=== PATIENT | male | born 1985 | race African-American/Black ===

== ENCOUNTER 2020-09-27 08:02 | Outpatient (CLI) | payer OTHER ==
--- NOTE | 2020-09-27 08:55 | SLEEP CARE CONSULTATION ---
Information from patient questionnaire entered by Jamaica Arias. I have reviewed and concur with the information entered by Jamaica Arias. This document represents the service I personally performed and the decisions made by me, Adriana Rivera ARNP. History of Present Illness Service Date and Time: 09/27/2020 0802 Reason for Visit: New patient Chief Complaint: reports: Unrefreshed sleep, Snoring, Excessive daytime sleepiness, Observed pauses in breathing, Frequent awakenings at night Date of Onset: 5 years Usual bedtime: 9 pm Time it takes to fall asleep: 5 minutes Snores at night: Yes Observed to quit breathing while asleep: Yes Sleeps alone due to snoring: No Number of times waking at night: 5 Reasons for waking at night: reports: Choking. denies: Snoring, Gasping for air Toss, Turn, or Twitch while sleeping: No Recalls having dreams: Yes Usually gets out of bed at: 5:30 am Feels refreshed in the morning: No Morning headache: No Sleepy or fatigued during the day: Yes Ever fallen asleep while driving: Yes (drowsy driving, no accidents) Takes day naps: No Dreams during day naps: No Prior sleep studies: Yes Year and Where: [facility] Additional HPI information: I had the pleasure of seeing ALVAREZ PAZ today regarding the possibility of him having a sleep disorder. His current complaints are frequent night aw akenings and choking in his sleep. He has a history of snoring, observed pauses of breathing while sleep, and excessive daytime sleepiness. He had a sleep study on 02-03-2020 which showed he has an average AHI of 11.4 and a meliton oxygen saturation of 91%. He was unable to follow up after getting the letter telling him of results because he was moved from [place] to [place]. He is here to follow up now on the sleep study. - Parasomnia Symptoms Ever been unable to move upon waking from sleep: No Walks in sleep: No Talks in sleep: No Ever acted out dreams in sleep: No Ever felt weak in the knees when startled or emotional: No Bothered by creepy, crawly, restless sensations in legs: No Problems with memory or concentration: Yes Subjective Initial [place] Sleepiness Scale score: 24 (in 2020) Past Medical History Past Medical History: reports: Other (GI doctor put on medication for stress induced vomiting for 3-4 years) Social History The patient's occupation is a [employer]. Patient is and lives in [place]. Have you smoked in the past 12 months: No Quit date: 2005 Alcohol use: Yes Alcohol amount and frequency: 4 beers a week Caffeine use: No Family History Family history of sleep disordered breathing: No Allergies and Home Medications Drug allergies reviewed: Yes (NKDA) Home medication list reviewed: Yes Allergy and home medication list: Amitriptyline Review of Systems Weight gain over past 5 years: 30 Gastrointestinal: reports: vomitting Ear/Nose/Throat: reports: wisdom teeth removed. denies: tonsillectomy Immunologic: denies: allergies to food or environment Physical Exam Blood Pressure: 127/91 Cuff size: wrist Heart Rate: 110 O2 Saturation: 98 Height: 6 ft 2 in Weight: 220 lb Body Mass Index: 28.2 BMI Classification: Overweight Nostrils: patent to airflow Turbinates: normal Mouth and throat: narrow oropharynx Uvula visualization: 50% Mallampati Class II Tongue: enlarged in size with teeth glover on lateral edges Tonsils: small Heart: regular rate and rhythm Lungs: clear bilaterally Impression and Plan 1. Obstructive Sleep Apnea-Hypopnea Syndrome, mild, with lowest oxygen saturation of 91%. He brought a copy of the sleep study with him and we will try to obtain copies of chart notes to be able to start him on CPAP therapy. Obviously this is the cause of the patients symptoms of unrefreshed sleep, and excessive daytime sleepiness. Positive pressure therapy could benefit his overall health and reduce cardiovascular or cerebrovascular adverse events. I reviewed oral appliance and positional therapy but patient would like to try the CPAP therapy. Thus, the patient will be started on nasal autoCPAP therapy with pressure set at 4-15 cmH2O. A manual titration study will be completed if unable to find optimal treatment pressure with office adjustments. Compliance guidelines also reviewed. A copy of compliance guidelines will be given for reference at check out. * Nasal auto CPAP therapy, pressure at 4-15 cm H2O. * Avoid alcohol consumption near bedtime. * Avoid supine sleep until using CPAP. * The patient is again cautioned about driving until sleepiness completely resolves. * Return one month after CPAP obtained. I will assess response to therapy and compliance at that time. Visit Type: In Office Time Spent with Patient (minutes): 32 Provider Statement: I spent 100% of the Face to Face Visit with the patient with greater than 50% spent counseling the patient and coordination of care.
[2020-09-27 08:57] VITALS: BP 127/91
== END 2020-09-27 08:03 | disposition home or self-care (01) ==
LOC: SC 08:02
PROVIDERS: ATTEND Nurse Practitioner Family
DX: G47.33 Obstructive sleep apnea (adult) (pediatric) (principal); E66.3 Overweight; Z68.28 Body mass index [BMI] 28.0-28.9, adult
CPT/HCPCS: 99203; 99212

== ENCOUNTER 2020-11-26 08:29 | Outpatient (CLI) | payer OTHER ==
--- NOTE | 2020-11-26 09:08 | SLEEP CARE CONSULTATION ---
Information from patient questionnaire entered by Jamaica Arias. I have reviewed and concur with the information entered by Jamaica Arias. This document represents the service I personally performed and the decisions made by , Adriana Rivera ARNP. History of Present Illness Service Date and Time: 11/26/2020 0829 Previous diagnosis: Mild, Obstructive Sleep Apnea-Hypopnea Syndrome AHI: 11.4 (in 2019) Reason for follow up: first compliance Equipment type: CPAP Equipment obtained from: [facility] (got initial supplies) Mask style: Full face Mask brand: Resmed (AirFit/AirTouch F20) Backup mask available: No (will keep old mask when replaced) Last cushion change: 30 days Prior sleep studies: Yes Year and Where: 2019 - [facility] HPI additional information: ALVAREZ PAZ was diagnosed to have mild, AHI 11.4, obstructive sleep apnea- hypopnea syndrome and returned today for CPAP therapy first compliance follow- up. CPAP Compliance Data - Data Reviewed with Patient Average duration of nightly device use: 6 hr 49 min Compliance rate %: 93 Current pressure setting (cmH2O): 4-15 (median 9.6, avg 13.2, max 14.3) Humidity settin Average residual AHI: 1.3 Subjective Missed days of use due to: reports: other (work) Patient concerns: reports: air blowing in eyes (resolved with large mask fitting better), other (had a rash at first but this has resolved with using large mask size). denies: aerophagia, mask discomfort, mask leak noise, condensation in mask/hose, nasal congestion, dry mouth, nose, throat, epistaxis Observed to snore while using device: No Current pressure setting perceived as: comfortable On therapy, patient: reports: sleeping better, awakening more refreshed, being more awake and alert during the day, more rested overall. denies: drowsiness while driving Initial [place] Sleepiness Scale score: 24 (in 2020) Current [place] Sleepiness Scale score: 22 Allergies and Home Medications Drug allergies reviewed: Yes (NKDA) Home medication list reviewed: Yes (no changes) Review of Systems Review of systems same as previous: Yes (no changes) Physical Exam Heart Rate: 88 O2 Saturation: 98 Height: 6 ft 2 in Weight: 220 lb Body Mass Index: 28.2 BMI Classification: Overweight Impression and Plan 1. Obstructive Sleep Apnea-Hypopnea Syndrome, mild, with good treatment compliance and good apnea control. On CPAP therapy, the patient has better sleep quality and is more rested overall. I will adjust his pressure to 10-15 cmH2O to reflect the pressures he has been using with good results. He had some skin irritation and mask leaks into his eyes for the first 2 nights but he switched from the small cushion to large cushion on the full face AirFit F20 and has not had these issues since. 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 Patient's apnea severity and rationale for treatment to reduce apnea, improve sleep quality and reduce cardiovascular and cerebrovascular events was reviewed. * Change autoCPAP pressure to 10-15 cmH2O * Notify me if snoring with mask or feeling that the pressure is too much or too little * Attempt to lose weight * Call this office if any problems using CPAP * Return for follow up in 1-2 months, or sooner if concerns arise Counseling Topics: Spare mask, Weight loss health impact Visit Type: In Office Time Spent with Patient (minutes): 22 Provider Statement: I spent 100% of the Face to Face Visit with the patient with greater than 50% spent counseling the patient and coordination of care.
== END 2020-11-26 08:30 | disposition home or self-care (01) ==
LOC: SC 08:29
PROVIDERS: ATTEND Nurse Practitioner Family
DX: G47.33 Obstructive sleep apnea (adult) (pediatric) (principal); E66.3 Overweight; Z68.28 Body mass index [BMI] 28.0-28.9, adult
CPT/HCPCS: 99212; 99213